=== PATIENT | male | born 1940 | race Caucasian/White ===

== ENCOUNTER → 2019-03-05 | Outpatient (CLI) | payer MEDICARE ==
[~2019-03-05] MED LIST: DOCU100 PO; HYDR1TAB94 PO; TAMS.4ER PO
[2019-03-05 08:15] LABS: Source, Urine Clean Catch
[2019-03-05 13:12] LABS: Bilirubin, Urine Neg (Neg); Blood, Urine Neg (Neg); Glucose Qualitative, Urine Neg (Neg); Ketones, Urine 1+ (Neg); Leukocyte Esterase, Urine Neg (Neg); Nitrite, Urine Neg (Neg); Protein, Urine 1+ (Neg); Urobilinogen, Urine 1+ (Normal)
[2019-03-05 13:29] LABS: Appearance, Urine Clear (Clear); Color, Urine Yellow (P-Yellow)
== END | disposition home or self-care (01) ==
LOC: LAB SHORT 03-04 08:14 → LAB 08:14
PROVIDERS: Legal Medicine
DX: R35.0 Frequency of micturition (principal)
CPT/HCPCS: 81003

== ENCOUNTER → 2019-04-09 | Outpatient (CLI) | payer MEDICARE | END | disposition home or self-care (01) | LOC: LAB SHORT 11:16 → LAB 11:16 → LAB FUT 04-07 11:55 | DX: J20.9 Acute bronchitis, unspecified (principal) | CPT/HCPCS: 87070; 87205 ==

== ENCOUNTER 2019-11-06 07:05 | Day surgery (SDC) | payer MEDICARE ==
[~2019-11-06] VITALS: Ht 175.3 cm; Wt 71.9 kg
[~2019-11-06 07:05] MED LIST changes: +ACET500; +Albuterol Sulfat2 MG; +PULMICORT0.5 MG/2 M; +Restoril15 MG; +ZOLOFT25 MG; +ZYRTEC10 M2
[2019-11-06] MEDS ORDERED: Duoneb 2.5-0.5 M3 ML INH (07:58)
--- NOTE | 2019-11-06 10:36 | NUR ---
11/06/19 1036 GUALBERTO LEAL PATIENT PLACED ON O2 FOR OXYGEN SATURATIONS IN HIGH 80S WITH IMPROVEMENT TO 90S.
--- NOTE | 2019-11-06 11:01 | NUR ---
11/06/19 1101 Elvira Varner PT TRANSFERRED INTO THE CHAIR WITH STAND BY ASSIST FROM RN. PT'S HEAD ELEVATED IN RECLINER. MUSTACHE DRESSING IN PLACE WITH SCANT AMOUNT OF BRIGHT RED BLOOD. PT'S AT CHAIRSIDE. PT DENIES NAUSEA AT THIS TIME. PT DENIES PAIN. PT'S O2 SATS WERE BETWEEN 87/91% ON ROOM AIR AFTER TRANSFERRING. SUPPLIMENTAL O2 REAPPLIED WITH FACE TENT AT 1055. PT'S SATS ARE NOW 100 AT 1101.
== END 2019-11-06 12:28 | disposition home or self-care (01) ==
LOC: ORSCSDS 07:05
PROVIDERS: Otolaryngology
PROC: 099Q4ZZ Drainage of Right Maxillary Sinus, Percutaneous Endoscopic Approach (ICD-10-PCS; principal; 2019-11-06 08:30)
PROC: 099U4ZZ Drainage of Right Ethmoid Sinus, Percutaneous Endoscopic Approach (ICD-10-PCS; principal; 2019-11-06 08:30)
PROC: 8E09XBZ Computer Assisted Procedure of Head and Neck Region (ICD-10-PCS; principal; 2019-11-06 08:30)
DX: J32.8 Other chronic sinusitis (principal); J44.9 Chronic obstructive pulmonary disease, unspecified; Z87.891 Personal history of nicotine dependence; Z79.899 Other long term (current) drug therapy; Z99.81 Dependence on supplemental oxygen
CPT/HCPCS: 87070; 87075; 87205; 88305; J1100; J2001; J2370; J2405; J2704; J3010; J7120

== ENCOUNTER 2021-09-08 16:53 | Emergency (ER) | payer MEDICARE ==
[~2021-09-08] VITALS: Ht 175.3 cm; Wt 65.3 kg
[~2021-09-08 16:53] MED LIST changes: +Duoneb 2.5-0.5 M3 ML INH
[2021-09-08 17:14] LABS: Source, Urine Clean Catch
[2021-09-08 17:17] LABS: BASOPHILS ABSOLUTE AUTO 0.02 K/mm3 (0.00-0.23); BASOPHILS PERCENT AUTO 0 % (0-2); EOSINOPHILS ABSOLUTE AUTO 0.08 K/mm3 (0.00-0.68); EOSINOPHILS PERCENT AUTO 1 % (0-6); Hematocrit 38.2 % (37.0-53.0); Hemoglobin 12.3 g/dL (13.5-17.5); IMMATURE GRAN ABSOLUTE AUTO 0.06 K/mm3 (0.00-0.10); IMMATURE GRAN PERCENT AUTO 1 % (0-1); LYMPHOCYTES ABSOLUTE AUTO 0.99 K/mm3 (0.84-5.20); LYMPHOCYTES PERCENT AUTO 8 % (21-46); MONOCYTES ABSOLUTE AUTO 1.27 K/mm3 (0.16-1.47); MONOCYTES PERCENT AUTO 11 % (4-13); Mean Corpuscular HGB 30.6 pg (26.0-34.0); Mean Corpuscular HGB Conc 32.2 g/dL (31.5-36.5); Mean Corpuscular Volume 95 fL (80-100); Mean Platelet Volume 9.6 fL (9.1-12.4); NEUTROPHILS ABSOLUTE AUTO 9.45 K/mm3 (1.96-9.15); NEUTROPHILS PERCENT AUTO 80 % (41-73); Platelet Count 335 K/mm3 (150-400); RDW Coefficient Variation 11.9 % (11.7-14.2); RDW Standard Deviation 41.7 fL (35.1-46.3); Red Blood Cell Count 4.02 M/mm3 (4.30-5.90); White Blood Cell Count 11.87 K/mm3 (4.00-11.30)
[2021-09-08 17:18] LABS: Appearance, Urine Cloudy (Clear); Bilirubin, Urine Neg (Neg); Blood, Urine 4+ (Neg); Color, Urine Yellow (P-Yellow); Glucose Qualitative, Urine Neg (Neg); Ketones, Urine 2+ (Neg); Leukocyte Esterase, Urine 3+ (Neg); Nitrite, Urine Neg (Neg); Protein, Urine 2+ (Neg); Urobilinogen, Urine NORM (Normal)
[2021-09-08 17:41] LABS: Mucus Heavy (0-Heavy); White Blood Cells, Urine 50-100 /hpf (0-5)
[2021-09-08 17:43] LABS: Squamous Epithelial Cells Few /hpf (Few)
[2021-09-08 17:44] LABS: Albumin, Blood 3.3 g/dL (3.4-5.0); Bilirubin, Total 0.4 mg/dL (0.1-1.0); Bun/Creatinine Ratio 12.7 (12.0-20.0); Creatinine, Blood 1.66 mg/dL (0.60-1.20); Globulin, Blood 3.4 g/dL (2.2-4.0); Potassium, Blood 3.9 mmol/L (3.5-5.5); Total Protein, Blood 6.7 g/dL (6.4-8.2)
[2021-09-08 17:45] LABS: Bacteria Few /hpf
[2021-09-08] MEDS ORDERED: BUDESONIDE0.5 MG/25 INH (19:03)
[2021-09-08] MEDS ORDERED: MONT10T PO (19:03)
[2021-09-08] MEDS ORDERED: CEFD300 PO (19:56)
== END 2021-09-08 21:45 | disposition home or self-care (01) ==
LOC: ER 16:53
PROVIDERS: Emergency Medicine
DX: N39.0 Urinary tract infection, site not specified (principal); J44.9 Chronic obstructive pulmonary disease, unspecified; Z88.6 Allergy status to analgesic agent; Z79.899 Other long term (current) drug therapy
CPT/HCPCS: 36415; 51702; 51798; 80053; 81001; 85025; 87077; 87086; 87186; 96365; 96366; 99284-25; J0696; J7030

== ENCOUNTER → 2021-09-17 | Outpatient (CLI) | payer MEDICARE ==
[~2021-09-17] MED LIST changes: +BUDESONIDE0.5 MG/25 INH; +CEFD300 PO; +MONT10T PO
[2021-09-17 13:36] LABS: Source, Urine Clean Catch
[2021-09-17 16:11] LABS: Appearance, Urine Clear (Clear); Bilirubin, Urine Neg (Neg); Blood, Urine 3+ (Neg); Color, Urine Yellow (P-Yellow); Glucose Qualitative, Urine Neg (Neg); Ketones, Urine Neg (Neg); Leukocyte Esterase, Urine Neg (Neg); Nitrite, Urine Neg (Neg); Protein, Urine 1+ (Neg); Specific Gravity, Urine 1.015 (1.003-1.022); Urobilinogen, Urine NORM (Normal)
[2021-09-17 16:14] LABS: Amorphous Light (0-Heavy); Bacteria Few /hpf; Mucus Light (0-Heavy); Squamous Epithelial Cells Few /hpf (Few); White Blood Cells, Urine 0-2 /hpf (0-5)
== END | disposition home or self-care (01) ==
LOC: LAB 13:35 → LAB SHORT 13:35
PROVIDERS: Legal Medicine
DX: N39.0 Urinary tract infection, site not specified (principal)
CPT/HCPCS: 81001; 87086

== ENCOUNTER 2021-11-26 18:28 | Emergency (ER) | payer MEDICARE ==
[~2021-11-26] VITALS: Ht 175.3 cm; Wt 69.8 kg
[2021-11-26] MEDS ORDERED: ZOLOFT25 MG PO (19:10)
[2021-11-26] MEDS ORDERED: XANAX0.25 MG PO (19:10)
[2021-11-26] MEDS ORDERED: ZYRTEC10 M4 PO (19:11)
[2021-11-26] MEDS ORDERED: TEMA15 PO (19:15)
[2021-11-26] MEDS ORDERED: Cephalexin500 MG PO (19:37)
[2021-11-26 19:54] LABS: Source, Urine Foley catheter
[2021-11-26 19:59] LABS: Bilirubin, Urine Neg (Neg); Blood, Urine 4+ (Neg); Glucose Qualitative, Urine Neg (Neg); Ketones, Urine Neg (Neg); Leukocyte Esterase, Urine 2+ (Neg); Nitrite, Urine Neg (Neg); Protein, Urine 1+ (Neg); Urobilinogen, Urine NORM (Normal)
[2021-11-26 20:07] LABS: Color, Urine Pale Yellow (P-Yellow)
[2021-11-26 20:08] LABS: Appearance, Urine Hazy (Clear)
[2021-11-26 20:09] LABS: Squamous Epithelial Cells Few /hpf (Few)
[2021-11-26 20:10] LABS: Amorphous Light (0-Heavy); Bacteria Few /hpf; Mucus Light (0-Heavy)
== END 2021-11-26 20:30 | disposition home or self-care (01) ==
LOC: ER 18:28
PROVIDERS: Emergency Medicine
DX: N48.1 Balanitis (principal); R33.9 Retention of urine, unspecified; Z88.6 Allergy status to analgesic agent; Z79.899 Other long term (current) drug therapy; J44.9 Chronic obstructive pulmonary disease, unspecified
CPT/HCPCS: 81001; 94640; 94664; A9270